=== PATIENT | female | born 1990 | race Caucasian/White ===

== ENCOUNTER 2024-01-26 20:49 | Emergency (ER) | payer OTHER ==
[~2024-01-26] VITALS: Ht 162.6 cm; Wt 75.5 kg
[2024-01-26 20:56] VITALS: TEMP 98.6
[2024-01-26 21:19] LABS: BASOPHILS % (AUTO) 0.3 % (0.0-2.0); EOSINOPHILS % (AUTO) 0.4 % (1.0-6.0); HEMATOCRIT 41.7 % (36-46); LYMPHOCYTES # (AUTO) 1.1 K/uL (1.0-4.8); LYMPHOCYTES % (AUTO) 10.5 % (22.0-44.0); MEAN CORPUSCULAR HEMOGLOBIN 31.3 pg (26.0-34.0); MEAN CORPUSCULAR HGB CONC 33.6 G/dL (31.0-37.0); MEAN CORPUSCULAR VOLUME 93 fL (80-100); MONOCYTES # (AUTO) 0.4 K/uL (0.1-1.0); MONOCYTES % (AUTO) 3.9 % (2.0-9.0); NEUTROPHILS # (AUTO) 9.1 K/uL (1.8-7.7); NEUTROPHILS % (AUTO) 84.9 % (40.0-70.0); PLATELET COUNT (AUTO) 329 K/uL (150-450); RED BLOOD CELL COUNT(AUTO) 4.48 MIL/uL (4.00-5.20); RED CELL DISTRIBUTION WIDTH 12.6 % (11.5-14.5); WHITE BLOOD COUNT (AUTO) 10.7 K/uL (4.5-11.0)
[2024-01-26 21:29] LABS: ANION GAP 12 mmol/L (8-16); CALCIUM, TOTAL 9.3 mg/dL (8.8-10.5); CARBON DIOXIDE 25 mmol/L (22-29); CHLORIDE 103 mmol/L (98-107); GLOMERULAR FILTR. RATE CALC > 60 mL/min (>60); GLUCOSE,RANDOM 103 mg/dL (70-110); POTASSIUM 4.3 mmol/L (3.5-5.1); SODIUM SERUM 140 mmol/L (136-145); UREA NITROGEN, BLOOD 17 mg/dL (7-18)
[2024-01-26 23:18] VITALS: BP 118/58; PULSE 79; RESP 16; O2SAT 100
[2024-01-27] MEDS: SODIUM CHLORIDE 0.9% 1,000 ML IV ONE (01:18)
[2024-01-27] MEDS: METOCLOPRAMIDE HCL 5 MG/ML 2 ML VIAL IVP ONE (01:19)
[2024-01-27] MEDS: KETOROLAC TROMETHAMINE 30 MG/ML VIAL IVP ONE (01:19)
[2024-01-27] MEDS: DiphenhydrAMINE HCL 50 MG/ML VIAL IVP ONE (01:19)
== END 2024-01-27 02:26 | disposition home or self-care (01) ==
LOC: EMS 20:49
DX: G43.909 Migraine, unspecified, not intractable, without status migrainosus (principal)
CPT/HCPCS: 99284; 80048; 84703; 85025; 36415; 96374; 96375; 96361; J1200; J1885; J2765